=== PATIENT | female | born 1980 | race Caucasian/White ===

== ENCOUNTER 2024-11-01 19:09 | Emergency (ER) | payer SELFPAY ==
[2024-11-01 19:55] LABS: Bacteria/HPF None Seen HPF (None Seen); CAUTI Indications for Culture Pelvic or flank pain; Glucose, Urine (Dipstick) Normal (Negative); Leukocyte Negative Leu/uL (Negative); Protein, Urine (Dipstick) Negative (Neg-Trace); RBC/HPF None Seen HPF (0-3); Specific Gravity, Urine 1.003 (1.002-1.036); WBC/HPF 0-3 HPF (0-3)
[2024-11-01 20:03] LABS: Urine Culture Reflex No No
[2024-11-01 20:21] LABS: #Basophils 0.05 10x3/uL (0.0-0.2); #Eosinophils 0.13 10x3/uL (0.0-0.7); #Monocytes 0.76 10x3/uL (0.11-0.59); #Neutrophils 3.89 10x3/uL (1.40-6.50); %Basophils 0.6 % (0.0-1.0); %Eosinophils 1.5 % (0.0-10.0); %Lymphocytes 44.6 % (21.0-51.0); %Monocytes 8.7 % (0.0-10.0); %Neutrophils 44.5 % (42.0-75.0); Hematocrit 38.0 % (36.0-47.0); Hemoglobin 12.3 g/dL (12.0-16.0); Mean Corpuscular Hemoglobin 29.9 pg (27.0-31.0); Mean Corpuscular Volume 92.5 fL (78.0-98.0); Platelet Count 277 10x3/uL (130-400); Red Blood Cell (RBC) Count 4.11 mill/uL (4.20-5.40); White Blood Cell (WBC) Count 8.73 10x3/uL (4.8-10.8)
[2024-11-01 20:32] LABS: BHCG - Serum Negative (NEGATIVE); Pregs Control Background? CLEAR/WHITE (CLR/WHITE); Pregs Control Bar Appear? YES (CONTROL BAR)
[2024-11-01 20:39] LABS: ALT (SGPT) 30 U/L (Less than 34); AST (SGOT) 27 U/L (11-34); Albumin 3.6 g/dL (3.1-4.5); Alkaline Phosphatase 84 U/L (40-110); Anion Gap 14 mmol/L (10-20); BUN (Urea Nitrogen) 13 mg/dL (7.0-18.7); Bilirubin, Total 0.2 mg/dL (0.3-1.2); Calc. Creatinine Clearance 0 mL/min (70-130); Calcium 8.7 mg/dL (7.8-10.44); Carbon Dioxide 22 mmol/L (22-29); Chloride 105 mmol/L (98-107); Globulin 2.9 g/dL (2.4-3.5); Glucose 87 mg/dL (70-105); Lipase 36 U/L (8-78); Potassium 3.7 mmol/L (3.5-5.1); Sodium 137 mmol/L (136-145)
[2024-11-01] MEDS ORDERED: Ondansetron PF 4 MG/2 ML Vial ONE (21:01)
[2024-11-01] MEDS ORDERED: Ketorolac Tromethamine 30 MG (1 mL) VIAL ONE (23:02)
== END 2024-11-01 23:30 | disposition home or self-care (01) ==
LOC: ERS 19:09
DX: R10.9 Unspecified abdominal pain (principal)
CPT/HCPCS: 36415; 74177; 80053; 81001; 83690; 84703; 85025; 96374; 96375; J1885; J2270; J2405